=== PATIENT | female | born 1990 | race African-American/Black ===

== ENCOUNTER 2018-04-02 12:09 | Emergency (ER) | payer OTHER ==
[2018-04-02 12:40] LABS: #Basophils 0.1 thou/uL (0.0-0.2); #Lymphocytes 1.6 thou/uL (1.20-3.40); #Monocytes 0.9 thou/uL (0.11-0.59); %Basophils 1.2 % (0.0-1.0); %Eosinophils 0.3 % (0.0-10.0); %Lymphocytes 18.5 % (21.0-51.0); %Monocytes 10.2 % (0.0-10.0); %Neutrophils 69.8 % (42.0-75.0); Mean Corpuscular HGB CONC 34.2 g/dL (32.0-36.0); Mean Corpuscular Hemoglobin 28.1 pg (27.0-31.0); Mean Corpuscular Volume 82.2 fL (78.0-98.0); Mean Platelet Volume 8.1 fL (7.4-10.4); Platelet Count 199 thou/uL (130-400); RBC Distribution Width 15.3 % (11.5-14.5); Red Blood Cell (RBC) Count 3.92 mill/uL (4.20-5.40); White Blood Cell (WBC) Count 8.6 thou/uL (4.8-10.8)
[2018-04-02 12:47] LABS: BHCG - Serum POSITIVE (NEGATIVE); Pregs Control Background? CLEAR/WHITE (CLR/WHITE); Pregs Control Bar Appear? YES (CONTROL BAR)
[2018-04-02 12:48] LABS: Bilirubin Negative (Negative); Blood, Urine Negative (Negative); Clarity CLOUDY (Clear); Glucose, Urine (Dipstick) Negative (Negative); Leukocyte Moderate (Negative); Nitrite Negative (Negative); Protein, Urine (Dipstick) Trace mg/dL (Neg-Trace); Specific Gravity, Urine 1.012 (1.002-1.036)
[2018-04-02 12:51] LABS: Bacteria/HPF 1+ HPF (None Seen); Hyaline Casts/LPF 4-6 HYALINE CAST LPF (0-3 Hyaline); Pathc Cast-AUWi Flag 1.16 (0-2.49); RBC/HPF 0-3 HPF (0-3)
[2018-04-02 12:58] LABS: ALT (SGPT) 8 U/L (8-55); AST (SGOT) 14 U/L (5-34); Albumin 3.9 g/dL (3.5-5.0); Alkaline Phosphatase 49 U/L (40-150); Anion Gap 12 mmol/L (10-20); BUN (Urea Nitrogen) 6 mg/dL (7.0-18.7); Bilirubin, Total 0.2 mg/dL (0.2-1.2); Calc. Creatinine Clearance 0 mL/min (70-130); Calcium 9.1 mg/dL (7.8-10.44); Carbon Dioxide 23 mmol/L (22-29); Chloride 106 mmol/L (98-107); Estimated GFR-MDRD Greater than 90; Globulin 3.6 g/dL (2.4-3.5); Glucose 72 mg/dL (70-105); Potassium 3.1 mmol/L (3.5-5.1); Protein, Total 7.5 g/dL (6.0-8.3); Sodium 138 mmol/L (136-145)
[2018-04-02 13:00] LABS: Amphetamine Not Detected (NotDetected); Barbiturates Screen Not Detected (NotDetected); Benzodiazepine Screen Not Detected (NotDetected); Cocaine Metabolite Screen Not Detected (NotDetected); Medtox Control Line Valid? VALID (VALID); Medtox Reader # READER 4; Methadone Not Detected (NotDetected); Methamphetamine Not Detected (NotDetected); Opiate Screen Not Detected (NotDetected); Oxycodone Screen Not Detected (NotDetected); Phencyclidine (PCP) Not Detected (NotDetected); THC/Cannabinoid Screen Detected (NotDetected); Tricyclic Screen Not Detected (NotDetected)
[2018-04-02 13:10] LABS: Acetaminophen Less than 6.0 mcg/mL (10.0-30.0); Alcohol Less than 10 mg/dL (Less than 10); Salicylate Less than 8.0 mg/dL (15.0-30.0)
[2018-04-02] MEDS ORDERED: Potassium Chloride 20 MEQ TAB ONE (14:40)
== END 2018-04-02 16:45 ==
LOC: ERS 12:09
DX: O9A.212 Injury, poisoning and certain other consequences of external causes complicating pregnancy, second trimester (principal); S60.812A Abrasion of left wrist, initial encounter; O99.342 Other mental disorders complicating pregnancy, second trimester; F32.9 Major depressive disorder, single episode, unspecified; F41.9 Anxiety disorder, unspecified; F43.10 Post-traumatic stress disorder, unspecified; X78.9XXA Intentional self-harm by unspecified sharp object, initial encounter; Z3A.00 Weeks of gestation of pregnancy not specified
CPT/HCPCS: 36415; 80053; 80306; 80307; 81003; 81015; 84443; 84703; 85025; 99285

== ENCOUNTER 2018-06-12 11:24 | Observation (INO) | payer OTHER ==
[2018-06-12 11:49] VITALS: BMI 23.4
[2018-06-12] MEDS ORDERED: NIFEdipine XL 30 MG TAB PO SCH (13:00)
[2018-06-12 15:16] LABS: Bilirubin Negative (Negative); Blood, Urine Negative (Negative); Clarity CLEAR (Clear); Glucose, Urine (Dipstick) Negative (Negative); Leukocyte Negative (Negative); Nitrite Negative (Negative); Protein, Urine (Dipstick) Negative (Neg-Trace); Specific Gravity, Urine 1.007 (1.002-1.036); Urobilinogen 0.2 mg/dL (0.2-1.0); pH, Urine 7.5 (5.0-9.0)
[2018-06-12 15:18] LABS: Bacteria/HPF None Seen HPF (None Seen); Hyaline Casts/LPF 0-3 HYALINE CAST LPF (0-3 Hyaline); RBC/HPF 0-3 HPF (0-3); Squamous Epithelial None Seen HPF (0-3); WBC/HPF 0-3 HPF (0-3)
[2018-06-12 15:29] LABS: Medtox Reader # READER 1
[2018-06-12 15:30] LABS: Amphetamine Not Detected (NotDetected); Barbiturates Screen Not Detected (NotDetected); Benzodiazepine Screen Not Detected (NotDetected); Cocaine Metabolite Screen Not Detected (NotDetected); Medtox Control Line Valid? VALID (VALID); Methadone Not Detected (NotDetected); Methamphetamine Not Detected (NotDetected); Opiate Screen Not Detected (NotDetected); Oxycodone Screen Not Detected (NotDetected); Phencyclidine (PCP) Not Detected (NotDetected); THC/Cannabinoid Screen Detected (NotDetected); Tricyclic Screen Not Detected (NotDetected)
[2018-06-12] MEDS ORDERED: hydrOXYzine 10 MG TAB PO SCH (17:45)
[2018-06-12 17:54] VITALS: BP 110/58
[2018-06-12] MEDS ORDERED: Zolpidem Tartrate 5 MG TAB PO SCH (23:15)
[2018-06-13] MEDS ORDERED: Lactated Ringer's 1,000 ML IV SCH (02:45)
[2018-06-13] MEDS ORDERED: NIFEdipine XL 30 MG TAB PO SCH (09:00)
[2018-06-13 09:45] VITALS: TEMP 98
== END 2018-06-13 09:00 | disposition home health service (06) ==
LOC: L&D/OP 11:24 → L&D 20:57
PROVIDERS: ADMIT Obstetrics & Gynecology; ATTEND Obstetrics & Gynecology
DX: O47.03 False labor before 37 completed weeks of gestation, third trimester (principal); O99.343 Other mental disorders complicating pregnancy, third trimester; F31.9 Bipolar disorder, unspecified; Z3A.28 28 weeks gestation of pregnancy; Z79.899 Other long term (current) drug therapy
CPT/HCPCS: 51701; 80306; 81001; 82731; 96360; 96361; 99285; G0378

== ENCOUNTER 2018-07-31 05:45 | Inpatient (IN) | payer OTHER ==
[2018-07-31 06:23] VITALS: BMI 25.4
[2018-07-31] MEDS ORDERED: Ibuprofen 800 MG TAB PO PRN (06:46)
[2018-07-31] MEDS ORDERED: Butorphanol Tartrate 1 MG/ML VIAL SLOW IVP PRN (06:46)
[2018-07-31] MEDS ORDERED: NS / Oxytocin 40 units/1000ml 1,000 ML IV PRN (06:46)
[2018-07-31] MEDS ORDERED: Meperidine HCl/PF 25 MG/ML VIAL IM/IV PRN (06:46)
[2018-07-31] MEDS ORDERED: HYDROcodone/Acetaminophen 5/325 mg Tablet PO PRN ×2 (06:46)
[2018-07-31] MEDS ORDERED: Ondansetron PF 4 MG/2 ML Vial IVP PRN ×2 (06:46→14:48)
[2018-07-31] MEDS ORDERED: Promethazine HCl 25 MG/ML VIAL IM PRN (06:46)
[2018-07-31] MEDS ORDERED: Lidocaine 1% (PF) 30 ML VIAL SC PRN (06:46)
[2018-07-31] MEDS ORDERED: NS w/ Oxytocin 10 units 500 ML IV SCH (07:00)
[2018-07-31] MEDS ORDERED: Lactated Ringer's 1,000 ML IV SCH (07:00)
[2018-07-31] MEDS: Lactated Ringer's 1,000 ML IV SCH ×2 (07:15→10:10)
[2018-07-31 07:52] LABS: Hemoglobin 9.9 g/dL (12.0-16.0); Mean Corpuscular HGB CONC 32.4 g/dL (32.0-36.0); Mean Corpuscular Hemoglobin 27.2 pg (27.0-31.0); Mean Corpuscular Volume 83.8 fL (78.0-98.0); Mean Platelet Volume 9.3 fL (7.4-10.4); Platelet Count 190 thou/uL (130-400); RBC Distribution Width 14.6 % (11.5-14.5); Red Blood Cell (RBC) Count 3.65 mill/uL (4.20-5.40); White Blood Cell (WBC) Count 12.9 thou/uL (4.8-10.8)
[2018-07-31 08:15] LABS: HBSAg Index 0.28 S/CO (0-0.99); Hep B Surf Ag Non-Reactive S/CO (NonReactive); Syphilis Antibody Nonreactive (Nonreactive); Syphilis Antibody Index 0.03 S/CO (<1.00 Non-Reactive)
[2018-07-31] MEDS ORDERED: Fentanyl 4 mcg/Bup 0.1% Cadd 100 ML ONE (08:55)
[2018-07-31] MEDS ORDERED: Preparation H Ointment 28 GM TUBE PR PRN (14:48)
[2018-07-31] MEDS ORDERED: Bisacodyl 10 MG SUPP PR PRN (14:48)
[2018-07-31] MEDS ORDERED: Benzocaine-Menthol 82.5 ML CAN TOP PRN (14:48)
[2018-07-31] MEDS ORDERED: diphenhydrAMINE 25 MG CAP PO PRN (14:48)
[2018-07-31] MEDS ORDERED: Lanolin Ointment 7 GM TUBE TOP PRN (14:48)
[2018-07-31] MEDS ORDERED: Milk Of Magnesia 30 ML UDCUP PO PRN (14:48)
[2018-07-31] MEDS ORDERED: Zolpidem Tartrate 5 MG TAB PO PRN (14:48)
[2018-07-31] MEDS ORDERED: Acetaminophen/Codeine 30-300mg Tablet PO PRN ×2 (14:48)
[2018-07-31] MEDS ORDERED: NS / Oxytocin 40 units/1000ml 1,000 ML IV SCH (15:00)
[2018-07-31] MEDS ORDERED: diphenhydrAMINE 50 MG/ML VIAL ONE (18:02)
[2018-08-01] MEDS: Docusate Calcium (SURFAK) 240 MG CAP PO SCH ×3 (06:05→20:10)
[2018-08-01] MEDS: Ibuprofen 800 MG TAB PO SCH ×4 (06:06→22:01)
[2018-08-01 06:28] LABS: Hemoglobin 8.8 g/dL (12.0-16.0); Mean Corpuscular HGB CONC 32.7 g/dL (32.0-36.0); Mean Corpuscular Hemoglobin 27.5 pg (27.0-31.0); Mean Corpuscular Volume 84.1 fL (78.0-98.0); Mean Platelet Volume 8.7 fL (7.4-10.4); Platelet Count 154 thou/uL (130-400); RBC Distribution Width 14.4 % (11.5-14.5); White Blood Cell (WBC) Count 12.4 thou/uL (4.8-10.8)
[2018-08-01] MEDS ORDERED: Adacel (T-DAP) 0.5 ML SYRINGE IM ONE (09:00)
[2018-08-01] MEDS: Prenatal Vitamin 1 TAB PO SCH (09:00)
[2018-08-01] MEDS: Ferrous Sulfate 325 MG TAB PO SCH ×3 (09:00→16:03)
[2018-08-02] MEDS: Ibuprofen 800 MG TAB PO SCH (05:54)
[2018-08-02 06:11] VITALS: TEMP 98.3
[2018-08-02] MEDS: Ferrous Sulfate 325 MG TAB PO SCH ×2 (08:43→09:02)
[2018-08-02] MEDS: Docusate Calcium (SURFAK) 240 MG CAP PO SCH (08:51)
[2018-08-02] MEDS: Prenatal Vitamin 1 TAB PO SCH (08:51)
[2018-08-02 08:56] VITALS: BP 126/78
== END 2018-08-02 11:30 | disposition home or self-care (01) | DRG 807 ==
LOC: L&D/OP 05:45 → L&D 06:58 → 3SW 18:39
PROVIDERS: ADMIT Obstetrics & Gynecology; ATTEND Obstetrics & Gynecology
PROC: 10E0XZZ Delivery of Products of Conception, External Approach (ICD-10-PCS; principal; 2018-07-31)
PROC: 10907ZC Drainage of Amniotic Fluid, Therapeutic from Products of Conception, Via Natural or Artificial Opening (ICD-10-PCS; 2018-07-31)
DX: O60.14X0 Preterm labor third trimester with preterm delivery third trimester, not applicable or unspecified (principal); Z37.0 Single live birth; O99.344 Other mental disorders complicating childbirth; O99.02 Anemia complicating childbirth; D64.9 Anemia, unspecified; F31.9 Bipolar disorder, unspecified; Z3A.36 36 weeks gestation of pregnancy
CPT/HCPCS: 36415; 51702; 85027; 86780; 86850; 86900; 86901; 87340; 90715; 99285; J1200; J2001; J2405; J2590

== ENCOUNTER 2019-08-11 17:15 | Day surgery (SDC) | payer OTHER ==
[2019-08-11 17:35] VITALS: BMI 26.6
[2019-08-11] MEDS ORDERED: hydrALAZINE 20 MG/ML VIAL SLOW IVP PRN (18:07)
[2019-08-11 18:34] LABS: Bilirubin Negative (Negative); Blood, Urine 1+ (Negative); Clarity Turbid (Clear); Glucose, Urine (Dipstick) Normal (Negative); Leukocyte 500 Leu/uL (Negative); Nitrite Negative (Negative); Protein, Urine (Dipstick) 20 mg/dL (Neg-Trace); RBC/HPF 0-3 HPF (0-3); Squamous Epithelial 0-3 HPF (0-3); Urobilinogen Normal mg/dL (Less than 2)
[2019-08-11 18:36] LABS: Bacteria/HPF 1+ HPF (None Seen)
[2019-08-11] MEDS ORDERED: Lidocaine 1% (PF) 30 ML VIAL ONE (19:33)
--- NOTE | 2019-08-11 19:43 | ULT ---
OBSTETRICAL ULTRASOUND: Indication: History of abdominal pain, evaluate cervical length. Comparison: No recent comparisons are available. FINDINGS: There is a live intrauterine gestation in vertex presentation and cardiac activity noted at 140 beats /minute. The cervical length measured approximately 2.9 cm without evidence of funneling. IMPRESSION: 1. Single live intrauterine gestation in vertex presentation. 2. Cervical length of approximately 2.9 cm without evidence of cervical funneling. POS: BH
[2019-08-11] MEDS ORDERED: cefTRIAXone\\ROCEPHIN 1 GM VIAL IM SCH (19:45)
--- NOTE | 2019-08-11 21:22 | PRG ---
DATE OF SERVICE: 08/11/2019 PRIMARY OB: Dr. Luis Miguel Nava. CHIEF COMPLAINT: Abdominal pain. HISTORY OF PRESENT ILLNESS: The patient is a 28-year-old female who reports about 5 days ago having what she believed to be food poisoning and began having significant diarrhea, which she continues to have. She reports that the diarrhea has improved in its severity. She also reports beginning to have contractions for the last several days that also have been improving in severity over the last several days but given the persistence and the duration, she came for evaluation. The patient reports that today she woke up with having some bleeding that she noticed in the bed and when she wipes, she has noticed bleeding on her toilet paper that is pink in color. She denies any bright red bleeding, any clotting. She also reports she has been having a discharge that she has noticed some on her toilet paper. The patient denies fever, headache, chest pain, shortness of breath. She has had some nausea earlier in this course, but has improved. Denies constipation. Denies any new rashes, hip problems, knee problems, muscle weakness. Denies urinary urgency or frequency. The patient does report pelvic pressure. PAST MEDICAL HISTORY: Bipolar disorder and anemia. PAST SURGICAL HISTORY: Negative. ALLERGIES: NO KNOWN DRUG ALLERGIES. SOCIAL HISTORY: Denies drug, alcohol, or tobacco use. MEDICATIONS: Iron, vitamins. OB LABS: Blood type is O positive. Antibody screen is negative. She is rubella immune. RPR is nonreactive. Hepatitis B surface antigen is negative. REVIEW OF SYSTEMS: Per HPI. PHYSICAL EXAMINATION: VITAL SIGNS: Blood pressure 113/56, heart rate of 75, respiratory rate 18, saturating 98% on room air, temperature 98.5. GENERAL: She appears to be in no acute distress. She is alert, oriented, cooperative, pleasant to interact with. HEAD: Normocephalic, atraumatic. LUNGS: Clear to auscultation bilaterally. HEART: Has regular rate and rhythm. ABDOMEN: Gravid, soft, nontender. She has no CVA tenderness. No paravertebral tenderness. No suprapubic tenderness. EXTREMITIES: Nontender, nonedematous. : Vulva is without masses, lesions, or erythema. Vagina is moist with minimal discharge. Cervix is visibly closed with a clear mucus present. On digital exam, cervix is one in a wiggle, fairly thick and soft. heart tracing shows the fetus with a baseline in the 130s with moderate long-term variability, positive 15 x 15 accelerations, no decelerations. Tocometer is not showing any regular contraction pattern. She has some irritability visible. LABORATORY DATA: UA shows urine that is turbid with 1+ blood, 500 leukocyte esterase, 11-20 white blood cells, and 1+ bacteria. VP3 is negative for Trichomonas, Gardnerella, and Cate. GC and chlamydia are pending. ultrasound was performed for cervical length with a cervical length reported at 2.9 cm with no funneling. ASSESSMENT AND PLAN: The patient is a 28-year-old female presenting with blood-tinged staining on her toilet paper and cramping and a history of diarrhea that is resolving spontaneously. The patient is likely experiencing contractions due to urinary tract infection and perhaps inflammation from the gastrointestinal infection. She is being given 1 g of Rocephin IM and will be sent home with Macrobid to be taken for the next 7 days. The patient reports she gets yeast infections whenever she takes antibiotics, so I have counseled her to take the Monistat 7 over the counter during the duration of her antibiotic use. I have updated Dr. Nava the patient's status and he would like to see her on Sunday for followup. The patient will be given labor precautions. Fetus has a category 1 tracing and reactive NST. Job ID: [id number]
[2019-08-12 18:38] LABS: Chlamydia by PCR Not Detected (NotDetected); GC by PCR Not Detected (NotDetected)
== END 2019-08-11 20:00 | disposition home or self-care (01) ==
LOC: L&D/OP 17:15
PROVIDERS: ATTEND Obstetrics & Gynecology
DX: O99.89 Other specified diseases and conditions complicating pregnancy, childbirth and the puerperium (principal); R10.9 Unspecified abdominal pain; O23.40 Unspecified infection of urinary tract in pregnancy, unspecified trimester; O99.019 Anemia complicating pregnancy, unspecified trimester; D64.9 Anemia, unspecified; Z3A.00 Weeks of gestation of pregnancy not specified; Z79.899 Other long term (current) drug therapy
CPT/HCPCS: 76815; 81001; 87480; 87491; 87510; 87591; 87660; J0696; J2001

== ENCOUNTER 2019-08-24 11:26 | Inpatient (IN) | payer OTHER ==
[2019-08-24 11:51] VITALS: BMI 25.8
[2019-08-24] MEDS ORDERED: hydrALAZINE 20 MG/ML VIAL SLOW IVP PRN ×2 (12:26→16:37)
--- NOTE | 2019-08-24 12:51 | PDOC.LDHP ---
Labor and Delivery H&P Chief complaint: abdominal pain HPI: 28 y/o at 34w0d, patient of Dr. Nava, presents with a several week history of pelvic pain and pressure but has been unable to get comfortable since last night. Has had an increase in mucous discharge and intermittent contractions. Denies VB, LOF, or decreased FM. ROS neg for HEENT, cv, pulm, gi, gu, neuro, psych, skin, musculoskeletal or constitutional symptoms other than mentioned above. OB History Details: 2009 - TSVD 2012 - ETOP 2013 - ETOP 2012 - TSVD 2016 - TSVD 2018 - 36w 2019 - 36w Current complications: none Past Medical History: Bipolar disorder Anemia Current medications: pre- vitamins, iron, other (bonjesta) Previous surgical history: none Allergies/Adverse Reactions: Allergies Allergy/AdvReac Type Severity Reaction Status Date / Time No Known Allergies Allergy Verified 08/24/19 11:50 Social history: drug use (marijuana) - Physical Exam Vital signs reviewed and normal: yes General: NAD, resting Lungs: nonlabored breathing Abdomen: gravid Extremeties: no edema FHT: category 2 (130s, mod variability, + accels, intermittent variable decels) [place] contractions every: 4-8 mins - Vaginal Exam cm dilated: 5 Effacement: 50% Station: -2 - Assessment L&D Assessment: labor - Plan Plan: admit to L&D, GBS antibiotic prophylaxis, informed consent obtained, anesthesia consult for pain management (if desired) -: Dr. Nava notified
[2019-08-24] MEDS ORDERED: Betamet Acet/Betamet Na Ph 30 MG/5 ML VIAL ONE (12:55)
[2019-08-24] MEDS ORDERED: Betamet Acet/Betamet Na Ph 30 MG/5 ML VIAL IM SCH (13:00)
[2019-08-24] MEDS ORDERED: Butorphanol Tartrate 1 MG/ML VIAL SLOW IVP SCH (13:00)
[2019-08-24 13:02] LABS: Bacteria/HPF None Seen HPF (None Seen); Bilirubin Negative (Negative); Blood, Urine Negative (Negative); Clarity Clear (Clear); Glucose, Urine (Dipstick) Normal (Negative); Leukocyte Negative Leu/uL (Negative); Nitrite Negative (Negative); Protein, Urine (Dipstick) Negative (Neg-Trace); RBC/HPF 0-3 HPF (0-3); Squamous Epithelial 0-3 HPF (0-3); Urobilinogen Normal mg/dL (Less than 2); WBC/HPF 0-3 HPF (0-3)
[2019-08-24 13:05] LABS: Urine Culture Reflex No No
[2019-08-24 13:14] LABS: Amphetamine Not Detected (NotDetected); Barbiturates Screen Not Detected (NotDetected); Benzodiazepine Screen Not Detected (NotDetected); Cocaine Metabolite Screen Not Detected (NotDetected); Medtox Control Line Valid? VALID (VALID); Medtox Reader # READER 1; Methadone Not Detected (NotDetected); Methamphetamine Not Detected (NotDetected); Opiate Screen Not Detected (NotDetected); Oxycodone Screen Not Detected (NotDetected); Phencyclidine (PCP) Not Detected (NotDetected); THC/Cannabinoid Screen Detected (NotDetected); Tricyclic Screen Not Detected (NotDetected)
[2019-08-24] MEDS: Lactated Ringer's 1,000 ML IV SCH ×3 (13:21→18:43)
[2019-08-24] MEDS ORDERED: NS / Oxytocin 40 units/1000ml 1,000 ML IV PRN (16:37)
[2019-08-24] MEDS ORDERED: Methylergonovine 0.2 MG/ML VIAL IM PRN (16:37)
[2019-08-24] MEDS ORDERED: Ibuprofen 800 MG TAB PO PRN (16:37)
[2019-08-24] MEDS ORDERED: Carboprost 250 MCG/ML AMP IM PRN (16:37)
[2019-08-24] MEDS ORDERED: HYDROcodone/Acetaminophen 5/325 mg Tablet PO PRN ×2 (16:37)
[2019-08-24] MEDS ORDERED: Diphenoxylate HCl/Atropine Tablet PO PRN ×2 (16:37)
[2019-08-24] MEDS ORDERED: Lidocaine 1% (PF) 30 ML VIAL SC PRN (16:37)
[2019-08-24] MEDS ORDERED: Promethazine HCl 25 MG/ML VIAL IM PRN (16:37)
[2019-08-24] MEDS ORDERED: Misoprostol 200 MCG TAB PR PRN (16:37)
[2019-08-24] MEDS ORDERED: Penicillin G Potassium 5 MILL.UNITS in Sodium Chloride 0.9% 100 ML IVPB SCH (16:45)
[2019-08-24 17:47] LABS: Hemoglobin 9.4 g/dL (12.0-16.0); Mean Corpuscular Hemoglobin 27.5 pg (27.0-31.0); Mean Corpuscular Volume 85.8 fL (78.0-98.0); Mean Platelet Volume 8.5 fL (7.4-10.4); Platelet Count 160 thou/uL (130-400); Red Blood Cell (RBC) Count 3.43 mill/uL (4.20-5.40); White Blood Cell (WBC) Count 11.6 thou/uL (4.8-10.8)
[2019-08-24 18:23] LABS: Syphilis Antibody Nonreactive (Nonreactive); Syphilis Antibody Index 0.03 S/CO (<1.00 Non-Reactive)
[2019-08-24 18:24] LABS: HBSAg Index 0.21 S/CO (0-0.99); Hep B Surf Ag Non-Reactive S/CO (NonReactive)
[2019-08-24] MEDS: Ondansetron PF 4 MG/2 ML Vial IVP PRN (21:10)
[2019-08-24] MEDS: Penicillin G 2.5 MILL.units 2.5 MILL.UNITS in Premix Bag 1 BAG IVPB SCH (21:10)
[2019-08-24] MEDS: Zolpidem Tartrate 5 MG TAB PO PRN (22:22)
[2019-08-25] MEDS: Penicillin G 2.5 MILL.units 2.5 MILL.UNITS in Premix Bag 1 BAG IVPB SCH ×6 (00:49→21:38)
[2019-08-25] MEDS ORDERED: Betamet Acet/Betamet Na Ph 30 MG/5 ML VIAL IM SCH (01:00)
[2019-08-25] MEDS: Lactated Ringer's 1,000 ML IV SCH ×2 (03:23→13:35)
[2019-08-25] MEDS: Butorphanol Tartrate 1 MG/ML VIAL SLOW IVP PRN ×2 (14:30→16:35)
[2019-08-25] MEDS ORDERED: Butorphanol Tartrate 1 MG/ML VIAL ONE (14:45)
[2019-08-25] MEDS: Zolpidem Tartrate 5 MG TAB PO PRN (21:39)
[2019-08-26] MEDS: Penicillin G 2.5 MILL.units 2.5 MILL.UNITS in Premix Bag 1 BAG IVPB SCH ×2 (05:31→12:42)
[2019-08-26] MEDS: Acetaminophen 500 MG TAB PO PRN ×3 (06:58→23:30)
[2019-08-26] MEDS: Ondansetron PF 4 MG/2 ML Vial IVP PRN (06:58)
[2019-08-26] MEDS: Zolpidem Tartrate 5 MG TAB PO PRN (23:30)
--- NOTE | 2019-08-27 15:25 | ULT ---
EXAM: OB ultrasound COMPARISON: 08/11/2019 HISTORY: Threatened labor. Evaluate for growth, positioning, and [place]. TECHNIQUE: Multiplanar grayscale and color Doppler transabdominal sonographic images are obtained. FINDINGS: There is a single intrauterine gestation in cephalic presentation. Cardiac Doppler demonstr ates heart tones with a heart rate of 141 beats per minute. The placenta is located fundally and posteriorly without evidence of placenta previa. There is a normal amount of amniotic fl uid with an amniotic fluid index of 13.6 centimeters. Cervix not well visualized on this exam. biometry measurements: BPD 8.49 cm -- 34 weeks 1 day HC 30.92 cm -- 34 weeks 4 days AC 30.78 cm -- 34 weeks 5 days FL 6.66 cm -- 34 weeks 2 days The estimated gestational age by ultrasound is 34 weeks 3 days with an KATERIN on10/05/2019. Gestational ag e by the last menstrual period is 34 weeks 1 day. The estimated weight by ultrasound is 2452 g (5 pounds, 7 ounces). This represents 56 percentil e for weight. This exam was not performed for evaluation of the anatomical structures. IMPRESSION: 1. Single intrauterine gestation in cephalic presentation with heart tones documented. Estimat ed gestational age by ultrasound is 34 weeks 3 days. 2. Estimated weight is 2452 g (5 pounds, 7 ounces). 3. Amniotic fluid index is 13.6 centimeters. 4. Cervix not well seen or evaluated on this exam.
[2019-08-28] MEDS: Lactated Ringer's 1,000 ML IV SCH ×3 (03:31→17:23)
[2019-08-28] MEDS: Penicillin G 2.5 MILL.units 2.5 MILL.UNITS in Premix Bag 1 BAG IVPB SCH ×3 (03:32→17:24)
[2019-08-28] MEDS: Ferrous Sulfate 325 MG TAB PO SCH (03:33)
[2019-08-28] MEDS: Zolpidem Tartrate 5 MG TAB PO PRN (22:30)
[2019-08-29] MEDS: Ferrous Sulfate 325 MG TAB PO SCH ×2 (06:24→13:12)
--- NOTE | 2019-08-29 07:57 | PRG ---
DATE OF SERVICE: 08/29/2019 SUBJECTIVE: Ms. Sifuentes is a 28-year-old 8, para 5 at 34 weeks and 5 days who has been sitting on labor and delivery at approximately 5 cm for several days. She has received corticosteroids. Because of the patient's social situation, advanced dilatation, and early gestational age, decision made not to discharge the patient home. OB Hospitalist group is covering for Dr. Nava this weekend. OB history includes spontaneous vaginal deliveries at 36 weeks, spontaneous vaginal deliveries at term, and elective terminations of . The patient is noted to have bipolar disease. She reports active fetus. The patient has remained afebrile with normal blood pressures throughout the past day. Q.6 hour NSTs are category 1 with occasional contractions. Cervical exam is stable at 550 minus 2 per RN. The patient was notified that further cervical exams would not be performed unless significant change occurred. IMPRESSION: labor arrested with multiple psychiatric and psychosocial issues. PLAN: Continued residency on labor and delivery. Anticipate spontaneous vaginal delivery. Group B strep prophylaxis of labor. Job ID: [id number]
[2019-08-29] MEDS: Penicillin G 2.5 MILL.units 2.5 MILL.UNITS in Premix Bag 1 BAG IVPB SCH ×2 (13:11→17:48)
[2019-08-29] MEDS: Lactated Ringer's 1,000 ML IV SCH ×2 (13:11→17:49)
[2019-08-29] MEDS: Zolpidem Tartrate 5 MG TAB PO PRN (23:18)
[2019-08-30] MEDS: Penicillin G 2.5 MILL.units 2.5 MILL.UNITS in Premix Bag 1 BAG IVPB SCH ×4 (06:25→22:19)
[2019-08-30] MEDS: Ferrous Sulfate 325 MG TAB PO SCH ×3 (06:25→22:19)
--- NOTE | 2019-08-30 07:32 | PRG ---
DATE OF SERVICE: 08/30/2019 SUBJECTIVE: The patient is a 29-year-old female with an intrauterine at 34 weeks and 6 days, admitted for labor and arrested at 5 cm. She is status post betamethasone. The patient this morning reports her contraction pattern has not changed, has not worsened. She denies vaginal bleeding or leakage of fluid. OBJECTIVE: VITAL SIGNS: Show blood pressure 127/70, heart rate of 74, respiratory rate of 16, temperature 98.2. GENERAL: She appears to be in no acute distress. She is alert and oriented, cooperative, and pleasant to interact with. HEENT: Head is normocephalic, atraumatic. ABDOMEN: Gravid, nontender. EXTREMITIES: Nontender. Fetus has a baseline in the 140s with moderate long-term variability, positive 15 x 15 accelerations. No contractions visible on the monitor, except for isolated ones. ASSESSMENT AND PLAN: Plan at this time is expectant management. Fetus has a category I tracing and will look for signs and symptoms of progressing labor. Job ID: [id number]
[2019-08-30] MEDS: Lactated Ringer's 1,000 ML IV SCH (09:02)
[2019-08-30] MEDS: Zolpidem Tartrate 5 MG TAB PO PRN (22:15)
--- NOTE | 2019-08-31 02:58 | PDOC.EVN ---
Event Note - Event Note Event Note: HD#7 35 weeks. Pt . very unhappy last night, said she was leaving AMA but decided to stay. VSS AF FHTs stable. No regular UCs noted. A: Arrested PTL s/p steroids. P: Cont. present mgmt.
[2019-08-31] MEDS: Lactated Ringer's 1,000 ML IV SCH ×2 (06:46→17:58)
[2019-08-31] MEDS: Ferrous Sulfate 325 MG TAB PO SCH (17:58)
[2019-08-31] MEDS: Zolpidem Tartrate 5 MG TAB PO PRN (21:01)
[2019-09-01] MEDS: Lactated Ringer's 1,000 ML IV SCH (13:37)
[2019-09-01] MEDS ORDERED: Penicillin G Potassium 5 MILL.UNITS VIAL ONE (13:45)
[2019-09-01 13:59] LABS: #Eosinphils 0.1 thou/uL (0.0-0.7); #Lymphocytes 2.4 thou/uL (1.20-3.40); #Monocytes 1.2 thou/uL (0.11-0.59); #Neutrophils 8.7 thou/uL (1.40-6.50); %Basophils 0.3 % (0.0-1.0); %Eosinophils 0.6 % (0.0-10.0); %Lymphocytes 19.3 % (21.0-51.0); %Monocytes 9.8 % (0.0-10.0); %Neutrophils 69.9 % (42.0-75.0); Hemoglobin 9.4 g/dL (12.0-16.0); Mean Corpuscular HGB CONC 32.2 g/dL (32.0-36.0); Mean Corpuscular Hemoglobin 26.8 pg (27.0-31.0); Mean Corpuscular Volume 83.3 fL (78.0-98.0); Mean Platelet Volume 8.7 fL (7.4-10.4); Platelet Count 201 thou/uL (130-400); RBC Distribution Width 14.5 % (11.5-14.5); White Blood Cell (WBC) Count 12.5 thou/uL (4.8-10.8)
[2019-09-01] MEDS ORDERED: NS w/ Oxytocin 10 units 500 ML ONE (14:51)
[2019-09-01] MEDS ORDERED: Butorphanol Tartrate 1 MG/ML VIAL ONE (16:18)
[2019-09-01] MEDS ORDERED: NS / Oxytocin 40 units/1000ml 1,000 ML ONE (16:33)
[2019-09-01] MEDS ORDERED: Lidocaine 1% (PF) 30 ML VIAL ONE (16:33)
[2019-09-01] MEDS ORDERED: Milk Of Magnesia 30 ML UDCUP PO PRN (17:25)
[2019-09-01] MEDS ORDERED: Acetaminophen/Codeine 30-300mg Tablet PO PRN ×2 (17:25)
[2019-09-01] MEDS ORDERED: Preparation H Ointment 28 GM TUBE PR PRN (17:25)
[2019-09-01] MEDS ORDERED: Benzocaine-Menthol 82.5 ML CAN TOP PRN (17:25)
[2019-09-01] MEDS ORDERED: Misoprostol 200 MCG TAB VAG PRN (17:25)
[2019-09-01] MEDS ORDERED: Zolpidem Tartrate 5 MG TAB PO PRN (17:25)
[2019-09-01] MEDS ORDERED: Bisacodyl 10 MG SUPP PR PRN (17:25)
[2019-09-01] MEDS ORDERED: hydrALAZINE 20 MG/ML VIAL SLOW IVP PRN (17:25)
[2019-09-01] MEDS ORDERED: Ondansetron PF 4 MG/2 ML Vial IVP PRN (17:25)
[2019-09-01] MEDS ORDERED: Lanolin Ointment 7 GM TUBE TOP PRN (17:25)
[2019-09-01] MEDS ORDERED: diphenhydrAMINE 25 MG CAP PO PRN (17:25)
[2019-09-01] MEDS ORDERED: NS / Oxytocin 40 units/1000ml 1,000 ML IV SCH (17:30)
[2019-09-01] MEDS: Ibuprofen 800 MG TAB PO SCH (22:17)
[2019-09-01] MEDS: Docusate Calcium (SURFAK) 240 MG CAP PO SCH (22:32)
[2019-09-02] MEDS: Ibuprofen 800 MG TAB PO SCH ×3 (05:31→22:48)
[2019-09-02 05:37] LABS: Hemoglobin 8.9 g/dL (12.0-16.0); Mean Corpuscular HGB CONC 31.9 g/dL (32.0-36.0); Mean Corpuscular Hemoglobin 26.8 pg (27.0-31.0); Mean Platelet Volume 8.8 fL (7.4-10.4); Platelet Count 185 thou/uL (130-400); RBC Distribution Width 14.7 % (11.5-14.5); Red Blood Cell (RBC) Count 3.33 mill/uL (4.20-5.40); White Blood Cell (WBC) Count 14.8 thou/uL (4.8-10.8)
[2019-09-02] MEDS: Ferrous Sulfate 325 MG TAB PO SCH ×4 (07:18→17:47)
[2019-09-02] MEDS: Lactated Ringer's 1,000 ML IV SCH ×4 (07:18→09:25)
[2019-09-02] MEDS: Penicillin G 2.5 MILL.units 2.5 MILL.UNITS in Premix Bag 1 BAG IVPB SCH ×3 (07:26→07:30)
[2019-09-02] MEDS: Docusate Calcium (SURFAK) 240 MG CAP PO SCH ×2 (08:43→22:48)
[2019-09-02] MEDS: Prenatal Vitamin 1 TAB PO SCH (08:43)
[2019-09-02] MEDS ORDERED: Adacel (T-DAP) 0.5 ML SYRINGE IM ONE (09:00)
[2019-09-03] MEDS: Ibuprofen 800 MG TAB PO SCH (05:45)
[2019-09-03] MEDS: Docusate Calcium (SURFAK) 240 MG CAP PO SCH (08:58)
[2019-09-03] MEDS: Prenatal Vitamin 1 TAB PO SCH (08:58)
[2019-09-03] MEDS: Ferrous Sulfate 325 MG TAB PO SCH (08:58)
[2019-09-03 09:41] VITALS: BP 142/82; TEMP 98.5
== END 2019-09-03 11:25 | disposition home or self-care (01) | DRG 832 ==
LOC: L&D/OP 11:26 → L&D 20:58 → L&D-LIB 08-26 17:28 → L&D 09-01 13:51 → 3SE 09-01 20:30
PROVIDERS: ADMIT Obstetrics & Gynecology; ATTEND Obstetrics & Gynecology
PROC: 3E0234Z Introduction of Serum, Toxoid and Vaccine into Muscle, Percutaneous Approach (ICD-10-PCS; principal; 2019-09-01)
DX: O60.03 Preterm labor without delivery, third trimester (principal); O99.323 Drug use complicating pregnancy, third trimester; Z23 Encounter for immunization; Z3A.34 34 weeks gestation of pregnancy; F31.9 Bipolar disorder, unspecified; O99.343 Other mental disorders complicating pregnancy, third trimester; O99.013 Anemia complicating pregnancy, third trimester; D64.9 Anemia, unspecified; F12.90 Cannabis use, unspecified, uncomplicated; O36.8330 Maternal care for abnormalities of the fetal heart rate or rhythm, third trimester, not applicable or unspecified
CPT/HCPCS: 36415; 51701; 76815; 80306; 81001; 85025; 85027; 86780; 86850; 86900; 86901; 87340; 87480; 87510; 87660; 90715; 99285; J0595; J0702; J2001; J2405; J2540; J2550; J2590; J3490; S3620

== ENCOUNTER 2023-08-10 21:41 | Emergency (ER) | payer OTHER ==
[2023-08-10 22:37] LABS: #Basophils 0.04 10x3/uL (0.0-0.2); %Basophils 0.5 % (0.0-1.0); %Eosinophils 1.3 % (0.0-10.0); %Lymphocytes 25.2 % (21.0-51.0); %Monocytes 11.9 % (0.0-10.0); %Neutrophils 60.8 % (42.0-75.0); Hematocrit 30.5 % (36.0-47.0); Hemoglobin 9.3 g/dL (12.0-16.0); Mean Corpuscular HGB CONC 30.5 g/dL (32.0-36.0); Mean Corpuscular Hemoglobin 22.6 pg (27.0-31.0); Mean Corpuscular Volume 74.2 fL (78.0-98.0); Mean Platelet Volume 9.7 fL (7.4-10.4); Platelet Count 273 10x3/uL (130-400); RBC Distribution Width 17.1 % (11.5-14.5); Red Blood Cell (RBC) Count 4.11 mill/uL (4.20-5.40)
[2023-08-10 22:52] LABS: ALT (SGPT) 12 U/L (8-55); AST (SGOT) 15 U/L (5-34); Albumin 4.1 g/dL (3.5-5.0); Alkaline Phosphatase 60 U/L (40-110); Anion Gap 17 mmol/L (10-20); BUN (Urea Nitrogen) 12 mg/dL (7.0-18.7); Bilirubin, Total 0.3 mg/dL (0.2-1.2); Calc. Creatinine Clearance 0 mL/min (70-130); Calcium 9.5 mg/dL (7.8-10.44); Carbon Dioxide 21 mmol/L (22-29); Chloride 106 mmol/L (98-107); Estimated GFR 99; Globulin 3.6 g/dL (2.4-3.5); Glucose 75 mg/dL (70-105); Potassium 3.1 mmol/L (3.5-5.1); Protein, Total 7.7 g/dL (6.0-8.3); Sodium 141 mmol/L (136-145)
[2023-08-10 22:58] LABS: Troponin I 0.016 ng/mL (< 0.028)
[2023-08-10 23:03] LABS: Anisocytosis SLIGHT = 6-15 cells HPF (0-5); Hypochromia SLIGHT = 6-15 cells HPF (0-5); Microcytosis SLIGHT = 6-15 cells HPF (0-5); Ovalocytes SLIGHT = 2-5 cells HPF (0-1); Platelet Adequacy Comment Platelets Normal; Polychromasia SLIGHT = 2-3 cells HPF (0-2)
[2023-08-10] MEDS ORDERED: Potassium Chloride 20 MEQ TAB ONE (23:50)
== END 2023-08-11 00:26 | disposition home or self-care (01) ==
LOC: ERS 21:41
DX: R55 Syncope and collapse (principal)
CPT/HCPCS: 36415; 80053; 84484; 85025; 93005; 96360; 96361